=== PATIENT | male | born 2000 | race Caucasian/White ===

== ENCOUNTER 2021-01-14 12:46 | Emergency (ER) | payer OTHER ==
[2021-01-14 12:53] VITALS: BP 124/71; PULSE 77; TEMP 98.5; BMI 25.8
[2021-01-14] MEDS ORDERED: IBUPROFEN 400 MG TABLET (FP) PO ONE ×2 (13:20→13:21)
[2021-01-14] MEDS ORDERED: DIPHTH,PERTUSS(ACELL),TET 0.5 ML DISP.SYRIN IM ONE ×2 (13:20→13:21)
[2021-01-14] MEDS ORDERED: LIDOCAINE HCL 1%, 10 MG/ML (50 mL VIAL) SQ ONE (13:39)
[2021-01-14] MEDS ORDERED: LIDOCAINE HCL 1%, 10 MG/ML (20ML VIAL) ONE (13:39)
[2021-01-14] MEDS ORDERED: LIDOCAINE 1%/EPI 1:100000 (50 ML MULTI DOSE VIAL) ONE (14:11)
[2021-01-14] MEDS ORDERED: CEPHALEXIN MONOHYDRATE 500 MG CAPSULE (UD) ONE (14:55)
[2021-01-14] MEDS ORDERED: CEPHALEXIN MONOHYDRATE 500 MG CAPSULE (UD) PO ONE (14:58)
== END 2021-01-14 15:23 | disposition home or self-care (01) ==
LOC: JERFT 12:46
PROC: 0HQGXZZ Repair Left Hand Skin, External Approach (ICD-10-PCS; principal; 2021-01-14)
PROC: 3E0234Z Introduction of Serum, Toxoid and Vaccine into Muscle, Percutaneous Approach (ICD-10-PCS; principal; 2021-01-14)
DX: S61.412A Laceration without foreign body of left hand, initial encounter (principal); W26.8XXA Contact with other sharp object(s), not elsewhere classified, initial encounter
CPT/HCPCS: 73130-TC-RT-FY; 90715; 99283-25

== ENCOUNTER 2021-01-16 14:19 | Emergency (ER) | payer SELFPAY ==
[2021-01-16 14:57] VITALS: BP 130/64; PULSE 74; TEMP 98.5; BMI 11.8
== END 2021-01-16 15:16 | disposition home or self-care (01) ==
LOC: JERFT 14:19
DX: Z48.02 Encounter for removal of sutures (principal)
CPT/HCPCS: 99281-25